=== PATIENT | female | born 1970 | race Caucasian/White ===

== ENCOUNTER 2017-05-26 08:33 | Emergency (ER) | payer OTHER ==
[~2017-05-26] VITALS: Ht 157.5 cm; Wt 136.1 kg
[~2017-05-26 08:33] MED LIST: CLONAZEPAM 0.50.5 M1 PO; COZAAR 25 MG TA25 M1 PO; DULERA 100 MCG/13 GM; LAMICTAL100 MG PO; LEVOTHYROXIN0.025 MG PO; PROZAC20 MG PO
[2017-05-26] MEDS ORDERED: WELLBUTRIN 100100 MG PO (08:44)
[2017-05-26] MEDS ORDERED: KEFLEX500 M1 PO (09:20)
[2017-05-26] MEDS ORDERED: DIFLUCAN150 MG PO (09:20)
[2017-05-26 09:35] VITALS: BP 154/69
== END 2017-05-26 09:35 | disposition home or self-care (01) ==
LOC: M.ERS 08:33
DX: S40.862A Insect bite (nonvenomous) of left upper arm, initial encounter (principal); S70.362A Insect bite (nonvenomous), left thigh, initial encounter; S00.262A Insect bite (nonvenomous) of left eyelid and periocular area, initial encounter; F31.9 Bipolar disorder, unspecified; J45.909 Unspecified asthma, uncomplicated; E03.9 Hypothyroidism, unspecified; W57.XXXA Bitten or stung by nonvenomous insect and other nonvenomous arthropods, initial encounter; Y93.89 Activity, other specified; Y92.89 Other specified places as the place of occurrence of the external cause; Y99.8 Other external cause status

== ENCOUNTER → 2018-01-06 | Outpatient (CLI) | payer OTHER ==
[~2018-01-06] MED LIST changes: +DIFLUCAN150 MG PO; +KEFLEX500 M1 PO; +WELLBUTRIN 100100 MG PO
== END ==
LOC: M.RAD 15:00
DX: N63.10 Unspecified lump in the right breast, unspecified quadrant (principal); R92.2 Inconclusive mammogram; E03.9 Hypothyroidism, unspecified; J45.909 Unspecified asthma, uncomplicated

== ENCOUNTER 2018-12-05 18:08 | Emergency (ER) | payer OTHER ==
[~2018-12-05] VITALS: Ht 157.5 cm; Wt 158.8 kg
[2018-12-05 21:00] VITALS: BP 127/68
== END 2018-12-05 21:02 | disposition home or self-care (01) ==
LOC: M.ERS 18:08
DX: G43.909 Migraine, unspecified, not intractable, without status migrainosus (principal); H53.8 Other visual disturbances; H53.149 Visual discomfort, unspecified; J45.909 Unspecified asthma, uncomplicated; F31.9 Bipolar disorder, unspecified; E03.9 Hypothyroidism, unspecified; Z90.89 Acquired absence of other organs

== ENCOUNTER → 2019-06-25 | Outpatient (CLI) | payer OTHER | LOC: M.ULTRA 07:28 | DX: D25.9 Leiomyoma of uterus, unspecified (principal) ==

== ENCOUNTER 2020-11-09 09:21 | Emergency (ER) | payer OTHER ==
[~2020-11-09] VITALS: Ht 157.5 cm; Wt 139.7 kg
[2020-11-09] MEDS ORDERED: PREDNISONE 20 M20 M1 PO (10:40)
[2020-11-09] MEDS ORDERED: ZPAK PO (10:40)
[2020-11-09] MEDS ORDERED: VENTOLIN HFA 1818 GM INH (10:40)
[2020-11-09 10:54] VITALS: BP 145/95
== END 2020-11-09 10:54 | disposition home or self-care (01) ==
LOC: M.ERS 09:21
DX: J45.909 Unspecified asthma, uncomplicated (principal); Z20.822 Contact with and (suspected) exposure to COVID-19; E03.9 Hypothyroidism, unspecified; G43.909 Migraine, unspecified, not intractable, without status migrainosus; Z90.89 Acquired absence of other organs

== ENCOUNTER → 2021-03-14 | Outpatient (CLI) | payer OTHER ==
[~2021-03-14] MED LIST changes: +PREDNISONE 20 M20 M1 PO; +VENTOLIN HFA 1818 GM INH; +ZPAK PO
== END ==
LOC: M.ULTRA 02-26 14:09
PROVIDERS: ATTEND Family Medicine
DX: Z12.31 Encounter for screening mammogram for malignant neoplasm of breast (principal); N83.291 Other ovarian cyst, right side; R22.41 Localized swelling, mass and lump, right lower limb; N93.9 Abnormal uterine and vaginal bleeding, unspecified; N95.1 Menopausal and female climacteric states